=== PATIENT | male | born 1995 | race Native Hawaiian/Other Pacific Islander ===

== ENCOUNTER 2018-08-28 20:10 | Emergency (ER) | payer OTHER ==
[~2018-08-28] VITALS: Ht 185.4 cm; Wt 70.3 kg
[2018-08-28 22:08] VITALS: BP 118/62; TEMP 98.5
== END 2018-08-28 22:11 | disposition home or self-care (01) ==
LOC: ED 20:10
DX: J06.9 Acute upper respiratory infection, unspecified (principal); R10.9 Unspecified abdominal pain; R50.9 Fever, unspecified; R19.7 Diarrhea, unspecified
CPT/HCPCS: 81000; 87502; 87651; 99283

== ENCOUNTER 2020-09-05 19:27 | Emergency (ER) | payer OTHER ==
[~2020-09-05] VITALS: Ht 185.4 cm; Wt 68.0 kg
[2020-09-05 20:25] LABS: PLATELET COUNT 154 K/uL (142-355)
[2020-09-05 21:15] VITALS: BP 122/74; TEMP 98.9
== END 2020-09-05 21:15 | disposition home or self-care (01) ==
LOC: ED 19:27
PROVIDERS: Hospitalist
DX: J40 Bronchitis, not specified as acute or chronic (principal); R50.9 Fever, unspecified; J32.8 Other chronic sinusitis; Z20.828 Contact with and (suspected) exposure to other viral communicable diseases; F17.210 Nicotine dependence, cigarettes, uncomplicated
CPT/HCPCS: 36415; 80048; 85027; 87502; 87635; 87651; 96372; 99283; J0696; J2930; U0003